=== PATIENT | female | born 1965 | race Caucasian/White ===

== ENCOUNTER 2016-07-09 11:45 | Emergency (ER) | payer OTHER ==
[~2016-07-09] VITALS: Ht 157.5 cm; Wt 47.6 kg
[2016-07-09] MEDS ORDERED: NAPROSYN500 M1 PO (12:45)
[2016-07-09] MEDS ORDERED: NEURONTIN300 M1 PO (12:45)
--- NOTE | 2016-07-09 12:46 | ED NECK/BACK PAIN COMPLAINT ---
History of Present Illness General Chief Complaint: General Adult Stated Complaint: REQUEST PAIN MED FOR NECK PAIN Source: patient Exam Limitations: no limitations Vital Signs & Intake/Output Vital Signs & Intake/Output Vital Signs Date Time Temp Pulse Resp B/P Pulse O2 O2 Flow FiO2 Ox Delivery Rate 07/09 1153 97.8 84 16 142/91 98 Room Air Triage Note: PT HERE FOR MEDICATION FOR NECK PAIN. PT REPORTS THAT SHE JUST HAD A MRI DONE AND SHE HAS BULDGING DISCS IN HER NECK AND FIBROMYALGIA. PT STATES HER PA SENT HER HERE BECAUSE SHE DOES NOT GIVE OUT PAIN MEDS BECAUSE SHE IS NOT A PAIN MANAGMENT DR. PT HAS APPT. FOR PAIN MANAGEMENT IN [place]. Triage Nurses Notes Reviewed? yes HPI: This patient is a 50-year-old female with a past medical history including fibromyalgia and cervical disc bulges who presented to the emergency department today for evaluation of neck pain. The patient reported that she recently had an MRI which showed multiple cervical disc bulges. She reported that she has a out of 10 pain that radiates from the right side of her neck down her right arm. She reported that she also has neuropathy in her right hand. She reported that the pain is sharp and worse with certain movements. It is constant. She reported that this pain has been going on for approximately 4 months. She saw her primary care physician today who refused to prescribe her any opiate medications. The patient reported that she is not looking for an opiate, she would just like something more for pain and Tylenol. The patient is currently being set up with pain management in [place]. (MEET RED,AIME) Allergies Coded Allergies: Penicillins (FEVER.RASH 07/09/16) aspirin (FEVER RASH 07/09/16) latex (RASH 07/09/16) Reconcile Medications Cranberry Extract (Cranberry) (Unknown Strength) CAPSULE 2 CAP PO DAILY SUPPLEMENT (Reported) Evening [place] Oil (Evening [place]) (Unknown Strength) CAPSULE (Unknown Dose) PO DAILY SUPPLEMENT (Reported) Gabapentin (Neurontin) 300 MG CAPSULE 1 CAP PO TID PRN NEUROPATHY Lactobacillus Acidophilus (Acidophilus) 1 EACH CAPSULE 1 CAP PO DAILY PROBIOTIC (Reported) Methocarbamol (Robaxin-750) 750 MG TABLET 1 TAB PO TID PRN MUSCLE RELAXER ( Reported) Sodium Fluoride (Sf 5000 Plus) 1.1 % CREAM..G. 1 CARL PO QHS DENTAL (Reported) Sumatriptan Succinate 100 MG TABLET 1 TAB PO AD PRN MIGRAINES (Reported) may repeat in 2 hours; do not exceed 200 mg in 24 hours Topiramate 100 MG TABLET 1 TAB PO TID MIGRAINES (Reported) (CR COOK MD) Past History Travel History Traveled to [place] past 21 day No Medical History Any Pertinent Medical History? see below for history Neurological: migraine, FIBROMYLAGIA Musculoskeletal: DEGENERATIVE DISC. Surgical History Surgical History: non-contributory Psychosocial History What is your primary language Citizen [place] Tobacco Use: Never used ETOH Use: denies use Illicit Drug Use: denies illicit drug use Family History Hx Contributory? No (AIME DSOUZA PA-C) Review of Systems Review of Systems Constitutional: Reports: no symptoms. Eyes: Reports: no symptoms. Ears, Nose, Throat, Mouth: Reports: no symptoms. Respiratory: Reports: no symptoms. Cardiovascular: Reports: no symptoms. Gastrointestinal/Abdominal: Reports: no symptoms. Musculoskeletal: Reports: see HPI. Skin: Reports: no symptoms. Neurological/Psychological: Reports: see HPI. All Other Systems: Reviewed and Negative (AIME DSOUZA PA-C) Physical Exam Physical Exam Neck: normal inspection, supple, full range of motion, normal alignment, RIGHT SIDED CERVICAL PARASPINAL MUSCULATURE TENDERNESS TO PALPATION WITH MUSCULAR SPASM NOTED Comments: Well-developed well-nourished person in no acute distress HEENT: Normal EENT exam, head normocephalic/atraumatic PERRLA bilaterally Back: Normal gait Cardiovascular: Regular rate and rhythm with no murmurs, rubs, or gallops Respiratory: No respiratory distress. Speaking in full sentences Extremity: Normal and equal pulses. Capillary refill less than 2 seconds. 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 Skin: No appreciable rash on exposed skin, skin is warm and dry. Psych: Mood and affect is normal (AIME DSOUZA PA-C) Progress Differential Diagnosis: C spine injury, carotid dissection, herniated disc, myofascial strain, spinal cord inj, thoracic outlet syn Plan of Care: Current Medications Sig/Maya Start time Last Medication Dose Stop Time Status Admin Tramadol HCl 50 MG ONCE ONE 07/09 1245 AC (Ultram) 07/09 1246 Departure Departure Disposition: HOME OR SELF CARE Condition: Stable Clinical Impression Primary Impression: Neck pain Referrals: KEILA PICKARD (PCP/Family) Additional Instructions: Please take medication for pain as prescribed. Follow-up with your primary care physician. Please be sure to follow up with pain management as directed for your pulmonary studies. Return for any worsening symptoms or concerns. Departure Forms: Customer Survey General Discharge Information Prescriptions: Current Visit Scripts Gabapentin (Neurontin) 1 CAP PO TID PRN NEUROPATHY #21 CAP (MEET RED,AIME) PA/CATTLE TESTER Co-Sign Statement Statement: ED Attending supervision documentation- [] I saw and evaluated the patient. I have also reviewed all the pertinent lab results and diagnostic results. I agree with the findings and the plan of care as documented in the PA's/CATTLE TESTER's documentation. x I have reviewed the ED Record and agree with the PA's/CATTLE TESTER's documentation. [] Additions or exceptions (if any) to the PAs/CATTLE TESTER's note and plan are summarized below: [] (JOEY CARDONA,CR)
[2016-07-09] MEDS ORDERED: TOPIRAMATE100 M2 PO (13:09)
[2016-07-09] MEDS ORDERED: ROBAXIN-750750 M1 PO (13:09)
[2016-07-09] MEDS ORDERED: SF 5000 PLUS51 GM PO (13:10)
[2016-07-09] MEDS ORDERED: SUMATRIPTAN SU100 M1 PO (13:10)
[2016-07-09] MEDS ORDERED: ACIDOPHILUS1 EACH PO (13:11)
[2016-07-09] MEDS ORDERED: EVENING PRIMRO PO (13:11)
[2016-07-09] MEDS ORDERED: CRANBERRY425 MG PO (13:11)
[2016-07-09 14:12] VITALS: BP 136/84
== END 2016-07-09 14:13 ==
LOC: ERH 11:45
DX: M54.2 Cervicalgia (principal)